=== PATIENT | female | born 1990 | race African-American/Black ===

== ENCOUNTER 2016-07-08 22:00 | Observation (INO) ==
[2016-07-08 22:39] LABS: Apearance,Urine Slightly Hazy (Clear); Bilirubin,Urine Negative (Negative); Blood, Urine Negative (Negative); Glucose,Urine (UA) Negative (Negative); Ketones,Urine 20 mg/dL (Negative); Mucus,Urine Few /LPF (Occasional); Nitrite,Urine Negative (Negative); Protein,Urine 30 MG/DL; RBC,Urine <1 /HPF (0-4); Squamous Epithelial Cell,Urine Occasional /HPF (0-10); Urine Color Yellow (Yellow); Urine Specific Gravity 1.018 (1.001-1.035); Urine Urobilinogen < 2.0 EU/DL (0.2-1.0); WBC,Urine 2 /HPF (0-6)
[2016-07-08] MEDS ORDERED: MEPERIDINE 50 MG/1 ML VIAL IV ONE (23:16)
[2016-07-08] MEDS ORDERED: PROMETHAZINE 25 MG/1 ML VIAL IM ONE (23:16)
[2016-07-08] MEDS: LACTATED RINGERS 1,000 ML IV SCH (23:54)
[2016-07-09] MEDS ORDERED: TERBUTALINE 1 MG/1 ML VIAL SUBCUT ONE (02:04)
[2016-07-09] MEDS: LACTATED RINGERS 1,000 ML IV SCH (02:45)
[2016-07-09 16:53] VITALS: BP 114/72
== END 2016-07-09 10:45 | disposition home or self-care (01) ==
LOC: N.LD 22:00 → N.LDOUT 22:00 → N.LD 22:04
PROVIDERS: ADMIT Specialist; ATTEND Specialist

== ENCOUNTER 2016-08-02 21:14 | Inpatient (IN) ==
[2016-08-02] MEDS ORDERED: BUTORPHANOL 2 MG/ML VIAL IV PRN (21:26)
[2016-08-02 22:09] LABS: Basophils % 0.4 % (0.0-0.8); Eosinophils # 0.1 10*3/uL (0.0-0.87); Hematocrit 30.4 VOL% (35.7-47.0); Hemoglobin 8.9 GM/DL (12.0-16.0); Immature Granulocytes % 0.3 %; Immature Granulocytes Absolute 0.03 #; Lymphocytes # 2.6 10*3/uL (1.4-4.0); Lymphocytes % 28.5 % (21.3-54.2); Mean Corpuscular HGB Conc 29.3 GM/DL (32-36); Mean Corpuscular Hemoglobin 21 PG (27-34); Mean Corpuscular Volume 69.9 FL (87-102); Monocytes # 0.6 10*3/uL (0.11-0.8); Monocytes % 6.7 % (1.7-12.7); NRBC # 0.03 10*3/uL; Neutrophils # 5.7 10*3/uL (1.4-7.4); Neutrophils % 63.1 % (38.7-73.9); Platelet Count 185 T/CUMM (130-400); Red Blood Count 4.35 MC/CUMM (3.8-5.5); Red Cell Distribution Width 16.9 % (9.3-17.3)
[2016-08-02 22:21] LABS: INR 0.9; PT Patient Result 9.4 SECS; Partial Thromboplastin Time 28.4 SECS (0-40)
[2016-08-02 22:29] LABS: Albumin 3.1 G/DL (3.4-5.0); Bilirubin,Total 0.4 MG/DL (0.2-1.0); Calcium 8.7 MG/DL (8.5-10.1); Potassium 3.7 MMOL/L (3.5-5.1); Total Protein 7.3 G/DL (6.4-8.3); Uric Acid 4.7 MG/DL (2.6-6.0)
[2016-08-02] MEDS: LACTATED RINGERS 1,000 ML IV SCH (23:45)
[2016-08-03] MEDS ORDERED: SODIUM CHLORIDE 0.9% 100 ML IV ONE (00:33)
[2016-08-03] MEDS ORDERED: AMPICILLIN 2,000 MG VIAL ONE (00:34)
[2016-08-03] MEDS: ONDANSETRON 4 MG/2 ML VIAL IV PRN ×2 (00:38→16:22)
[2016-08-03] MEDS: AMPICILLIN INJ 2,000 MG in SODIUM CHLORIDE 0.9% 100 ML IV SCH ×2 (00:42→11:35)
[2016-08-03] MEDS ORDERED: ePHEDrine 50 MG/ML AMP IV PRN (03:54)
[2016-08-03] MEDS ORDERED: fentaNYL 2 MCG/ROPIV 0.2% EPID 150 ML EPIDURAL SCH (03:54)
[2016-08-03] MEDS ORDERED: CITRIC ACID/SODIUM CITRATE 30 ML UDCUP PO ONE (03:54)
[2016-08-03] MEDS ORDERED: FAMOTIDINE 20 MG/2 ML VIAL IV ONE (03:54)
[2016-08-03] MEDS ORDERED: LACTATED RINGERS 1,000 ML IV SCH (04:00)
[2016-08-03] MEDS: LACTATED RINGERS 1,000 ML IV SCH ×2 (04:10→06:44)
[2016-08-03 06:05] LABS: Apearance,Urine CLEAR (Clear); Bilirubin,Urine Negative (Negative); Blood, Urine Moderate mg/dL (Negative); Glucose,Urine (UA) Negative (Negative); Ketones,Urine Negative (Negative); Nitrite,Urine Negative (Negative); Protein,Urine Negative; RBC,Urine 43 /HPF (0-4); Urine Color Yellow (Yellow); Urine Specific Gravity 1.008 (1.001-1.035); Urine Urobilinogen < 2.0 EU/DL (0.2-1.0); WBC,Urine <1 /HPF (0-6)
[2016-08-03] MEDS: OXYTOCIN/LR 20 UNIT/1,000 ML BAG IV SCH (06:12)
[2016-08-03] MEDS ORDERED: fentaNYL 100 MCG/2 ML VIAL ONE (07:41)
--- NOTE | 2016-08-03 08:06 | OB/GYN History & Physical ---
History of Present Illness Chief complaint: 40 weeks History of present illness: Ms. Sims is a 25 year old female 2 para 1 at 40 weeks estimated gestational age admitted for Cytotec induction. Ultrasound estimated weight 6 pounds medical clinical pelvimetry. Confirmation of vertex was made. Bag of bentley intact and ELADIO is normal. Patient had positive screening for Down syndrome earlier was referred to Dr. Jelani Ambrose perinatology in [place] with normal scan and was told her there was no evidence of genetic abnormality Patient was admitted and had Cytotec placed at midnight and 4 AM was rechecked noted to be 4-5 cm dilated and required no further Cytotec. She is admitted for expected vaginal delivery Home Medications Medication Instructions Recorded Confirmed Type Multivitamin () [ 1 tablet PO DAILY #30 12/22/14 08/02/16 Rx Vitamin] Levothyroxine Tab [Synthroid Tab] 1 tablet PO DAILY 08/02/16 08/02/16 History Allergies Allergy/AdvReac Type Severity Reaction Status Date / Time Nickel Allergy Intermediate RASH Verified 08/02/16 23:02 12 point system: reviewed and no additional remarkable complaints except as stated Medical,Surgical,& Family Hx - Medical History Psychological: No history of: Anxiety Disorders, ADHD, Behavior Problems, Bipolar Disorder, Depression, Previous Suicide Attempt, Psychiatric/Substance Abuse Tx, Schizophrenia, Violent Behavior, Psychiatric Problems Neurology: No history of: Brain Aneurysm, Cerebral Hemorrhage, Cerebrovascular Accident , Cerebral Palsy, Dementia HEENT: History of: Ear Problem (Keloids excised from right ear 5 times) No history of: Eye Problem, Dental Problems, Glaucoma, Oral Cancer, HEENT Problems Endocrine: History of: Thyroid Disorder (HYPERTHYROID) Rheumatology: No history of;: Psoriasis, Sjogrens, Systemic Lupus Erythematosus Respiratory: No history of: Respiratory Problems Renal: No history of: Renal Problems Gastrointestinal: History of: Hemorrhoids Musculoskeletal: No history of: Amputation, Musculoskeletal Problems Hematology: History of: Anemia (BLOOD TRANSFUSION IN 2009) No history of: Blood Transfusion Reaction Reproductive: History of: Abnormal Pap Smear (biopsy done in 2010) No history of: Breast Cancer, Endometriosis, Ectopic , Ovarian Cysts , Complication, Sexually Transmitted Disorders, Reproductive Cancer, Reproductive Problems Other: No history of: Anesthesia Reactions, Anaphylaxis, Cancer, Eczema, HIV, Malignant Hyperthermia, MRSA, Vancomycin-Resistant Enterococci, Skin Problems, Miscellaneous Medical Problems - Surgical History Cardiac Surgeries: Patient Denies: Cardiac Catheterization Thoracic Surgeries: Patient denies;: Organ Transplant, Lobectomy Neurologic Surgeries: Patient denies: Brain Aneurysm, Cerebral Hemorrhage, Neurologic Surgery HEENT Surgeries: Patient denies: Eye Surgery, Tonsilectomy & Adenoidectomy Abdominal Surgeries: Patient denies: Abdominal Surgery, Appendectomy, Cholecystectomy, Colonoscopy , Gastric Bypass Surgery, EGD, Hernia Repair Reproductive Surgeries: Patient denies;: Breast Surgery, Section, Dilation and Curettage, Genitourinary Surgery, Gynecologic Surgery, Hysterectomy, Tubal Ligation Orthopedic Surgeries: Patient denies;: Implanted Devices, Orthopedic Surgery, Spinal Surgery, Total Hip Replacement, Total Knee Replacement - Family History Family History: Reports;: Family Cancer (Maternal grandmother-lung ca), Family Diabetes (Dad and both grandmothers), Family Hypertension (Mom and maternal grandmother) Denies;: Family Anesthesia Reaction, Family Heart Disease, Family Hematology , Family Psychiatric Problems, Family Stroke, Additional Family History - Social History Smoking Status: Never smoker Frequency of Alcohol Use: None 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 - Constitutional Vitals: Vital Signs Temp Pulse Resp BP Pulse Ox 08/03/16 04:00 97.6 F 76 20 148/89 08/03/16 00:00 97.6 F 72 18 118/79 08/02/16 21:26 98.1 F 94 H 18 135/87 100 General appearance: normal weight - Head Head exam: Present: normal inspection, normocephalic, atraumatic - Neck Neck exam: Present: normal inspection - Respiratory Respiratory exam: Present: clear to auscultation bilaterally - Breast Breasts: as per HPI Menstruation: as per HPI - Cardiovascular Cardiovascular exam: Present: regular rate and rhythm - GI/Abdominal GI/Abdominal exam: Present: normal bowel sounds - Extremities Exam Extremities exam: Present: normal inspection, normal capillary refill Assessment and Plan (1) Postmaturity , 40-42 weeks gestation Status: Acute Current Visit: Yes Results - Labs CBC & BMP: 08/02/16 21:41 08/02/16 21:41
[2016-08-03] MEDS ORDERED: miSOPROStol 200 MCG TABLET ONE (08:40)
[2016-08-03] MEDS ORDERED: METHYLERGONOVINE 0.2 MG/1 ML AMP ONE (08:40)
--- NOTE | 2016-08-03 08:44 | OB/GYN Progress Note ---
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 Ackerman dictating vaginal delivery And in LDR environment under sterile conditions, the patient progressed to completely dilated. She was allowed to push and under [epidural] anesthesia had a normal spontaneous vaginal delivery of a live born female infant unweighed Apgars pending over a first-degree midline tear. The infant's nose and oropharynx were bulb and DeLee suctioned, and the infant had spontaneous cry after delivery. The cord was doubly clamped and cut and the was handed over to the pediatric team for care. Cord blood was obtained the placenta delivered spontaneously intact and IV Pitocin was done. There were no cervical tears. There were no periurethral tears. Estimated blood loss was 250 mL. The first-degree midline tear was repaired with 2-0 Monocryl suture in usual fashion under epidural anesthesia without complication there were no complications. The bladder was emptied using a catheter prior to delivery. All sponge needle and instrument counts were correct -3 at the end of the delivery. The infant was taken to nursery in stable condition Exam LASERIST - Constitutional Vitals: Vital Signs Temp Pulse Resp BP Pulse Ox 08/03/16 04:00 97.6 F 76 20 148/89 08/03/16 00:00 97.6 F 72 18 118/79 08/02/16 21:26 98.1 F 94 H 18 135/87 100 Results - Labs CBC & BMP: 08/02/16 21:41 08/02/16 21:41
[2016-08-03] MEDS ORDERED: LANOLIN 50% CREAM 0.3 OZ TUBE TOP PRN (08:45)
[2016-08-03] MEDS ORDERED: oxyCODONE/ACETAMINOPHEN 5-325 MG TABLET PO PRN ×2 (08:45)
[2016-08-03] MEDS ORDERED: MEASLES/MUMPS/RUBELLA VACCINE 0.5 ML VIAL SUBCUT ONE (08:45)
[2016-08-03] MEDS ORDERED: HYDROCORTISONE 2.5% RECTAL CREAM 30 GM TUBE TOP PRN (08:45)
[2016-08-03] MEDS ORDERED: DIPH/TET/ACEL PERT BOOSTER VACCINE 0.5 ML VIAL IM ONE (08:45)
[2016-08-03] MEDS ORDERED: ONDANSETRON 4 MG/2 ML VIAL IV PRN (08:45)
[2016-08-03] MEDS ORDERED: RHO(D) IMMUNE GLOBULIN 300 MCG SYRINGE IM ONE (08:45)
[2016-08-03] MEDS ORDERED: BISACODYL 10 MG SUPP RECTAL PRN (08:45)
[2016-08-03] MEDS ORDERED: OXYTOCIN/LR 20 UNIT/1,000 ML BAG IV ONE (08:45)
[2016-08-03] MEDS ORDERED: BENZOCAINE 20%/MENTHOL 0.5% SPRAY 56 GM CAN TOP PRN (08:45)
[2016-08-03] MEDS ORDERED: ACETAMINOPHEN 325 MG TABLET PO PRN (08:45)
[2016-08-03] MEDS ORDERED: WITCH HAZEL PADS 100/JAR TOP PRN (08:45)
[2016-08-03] MEDS: IBUPROFEN 800 MG TABLET PO PRN ×2 (11:00→20:09)
[2016-08-03] MEDS ORDERED: MULTIVITAMIN PO SCH (12:22)
[2016-08-03] MEDS ORDERED: LEVOTHYROXINE PO SCH (12:22)
[2016-08-03] MEDS: DOCUSATE SODIUM 100 MG CAPSULE PO SCH ×2 (16:15→21:17)
[2016-08-04] MEDS: LACTATED RINGERS 1,000 ML IV SCH (02:39)
[2016-08-04] MEDS: AMPICILLIN INJ 2,000 MG in SODIUM CHLORIDE 0.9% 100 ML IV SCH (02:39)
[2016-08-04] MEDS: IBUPROFEN 800 MG TABLET PO PRN (04:15)
[2016-08-04 05:48] LABS: Basophils % 0.3 % (0.0-0.8); Eosinophils # 0.2 10*3/uL (0.0-0.87); Eosinophils % 1.8 % (0.00-10.9); Hematocrit 24.5 VOL% (35.7-47.0); Immature Granulocytes % 0.5 %; Immature Granulocytes Absolute 0.05 #; Lymphocytes # 2.8 10*3/uL (1.4-4.0); Lymphocytes % 27.1 % (21.3-54.2); Mean Corpuscular HGB Conc 28.6 GM/DL (32-36); Mean Corpuscular Hemoglobin 20 PG (27-34); Mean Corpuscular Volume 70.6 FL (87-102); Monocytes # 0.8 10*3/uL (0.11-0.8); Monocytes % 7.5 % (1.7-12.7); NRBC # 0.03 10*3/uL; Neutrophils # 6.5 10*3/uL (1.4-7.4); Neutrophils % 62.8 % (38.7-73.9); Platelet Count 128 T/CUMM (130-400); Red Blood Count 3.47 MC/CUMM (3.8-5.5); Red Cell Distribution Width 17.1 % (9.3-17.3); White Blood Count 10.4 T/CUMM (4-12)
[2016-08-04] MEDS: OXYTOCIN/LR 20 UNIT/1,000 ML BAG IV SCH (06:03)
[2016-08-04 06:16] LABS: Hypochromasia 1+; Microcytosis 1+
[2016-08-04 06:17] LABS: Platelet Estimate Adequate
[2016-08-04] MEDS ORDERED: ACETAMINOPHEN/CODEINE 300-30 MG TABLET PO PRN (08:32)
--- NOTE | 2016-08-04 08:41 | OB/GYN Progress Note ---
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
[2016-08-04] MEDS: DOCUSATE SODIUM 100 MG CAPSULE PO SCH ×2 (08:45→21:06)
[2016-08-04] MEDS ORDERED: PROMETHAZINE 25 MG/1 ML VIAL IM ONE (08:45)
[2016-08-04] MEDS: ACETAMINOPHEN/CODEINE 300-30 MG TABLET PO PRN ×3 (08:45→21:05)
--- NOTE | 2016-08-04 17:11 | Anesthesia Post-Op ---
Anesthesia Post OP - Post Ansesthetic Evaluation Patient seen in post op: Yes Resp: within normal limits CV: within normal limits Mental: within normal limits Temp: within normal limits Dvhl-It-[id number]: within normal limits Nausea and Vomiting: within normal limits Pain: within normal limits
[2016-08-05] MEDS: ACETAMINOPHEN/CODEINE 300-30 MG TABLET PO PRN (00:40)
--- NOTE | 2016-08-05 05:44 | Discharge Summary ---
Hospital Course - Hospital Course Hospital Course: the patient did well. She had quick return of bowel and bladder function. She remained afebrile and normotensive throughout her hospitalization. She is constantly discharged on day #2 on a regular diet Diagnosis - Discharge Diagnosis (1) Postmaturity , 40-42 weeks gestation Status: Acute Specialty Discharge - Follow Up or Referrals Follow up with: Chriss Ackerman MD [Physician] - Discharge Plan - Discharge Data Disposition: Disch To Home/Self Care Condition at Discharge: Stable Discharge Diet: regular diet Activity: increase activity as tolerated, other (Pelvic rest) Hygiene: may shower Weight Bearing at Discharge: full weight bearing Driving: no restrictions Contact your physician if you experience:: fever over 101, Difficulty voiding, Redness or swelling, Nausea/Vomiting, Shortness of breath, Bleeding, pain uncontrolled by pain medications - Discharge Medications New HYDROcodone/ACETAMIN 5-325 [Corwith 5-325] 1 tablet PO Q4H PRN #15 tablet PRN Reason: Abdominal Pain Continue Multivitamin () [ Vitamin] 1 tablet PO DAILY #30 Levothyroxine Tab [Synthroid Tab] 1 tablet PO DAILY - Follow Up or Referral Follow Up: Chriss Ackerman MD [Physician] - 2 Weeks - Forms/Instructions Instructions: Perineal Care (DC), Vaginal Delivery (DC), Bleeding (DC) Exam - Constitutional Vitals: Period Temp Pulse Resp BP Sys/Teran Pulse Ox Last 24 Hr 96.8 F-98 F 70-96 18-20 109-140/66-90 97-100 Discharge Results Labs on day of discharge: Labs from last 24 hours 08/04/16 05:23 WBC 10.4 RBC 3.47 L D Hgb 7.0 L D Hct 24.5 L MCV 70.6 L MCH 20 L MCHC 28.6 L RDW 17.1 Plt Count 128 L D Neut % (Auto) 62.8 Lymph % (Auto) 27.1 Hudson % (Auto) 7.5 Eos % (Auto) 1.8 Baso % (Auto) 0.3 Neut # (Auto) 6.5 Lymph # (Auto) 2.8 [place] # (Auto) 0.8 Eos # (Auto) 0.2 Baso # (Auto) 0.0 Immature Gran % 0.5 Nucleated RBC % 0.3 Immature Gran # 0.05 Nucleated RBCs # 0.03 Platelet Estimate Adequate Hypochromasia 1+ Microcytosis 1+ Morphology Comment DS: Provider Date of admission: 08/02/16 21:26 Primary care physician: . No PCP Attending physician on admission: Lillian Harrison Consults: 08/02/16 21:26 Consult to Anesthesiology [CONS] Routine Consulting Provider: Reason for Anesthesiology: Epidural Consult Comment: Epidural for pain managment 08/03/16 08:45 Consult to Coal Carrier [CONS] Routine Consult Coal Carrier: Breast Feeding Discharging clinician: Lillian Harrison Expected date of discharge: 08/05/16
[2016-08-05 07:43] VITALS: BP 113/65
[2016-08-05] MEDS: DOCUSATE SODIUM 100 MG CAPSULE PO SCH (09:35)
== END 2016-08-05 10:50 | disposition home or self-care (01) | DRG 560 ==
LOC: N.LDOUT 21:14 → N.LD 21:19 → N.OB 08-03 12:21
PROVIDERS: ADMIT Specialist; ATTEND Specialist

== ENCOUNTER 2018-01-10 16:15 | Inpatient (IN) ==
[2018-01-10 18:00] LABS: Basophils % 0.4 % (0.0-0.8); Eosinophils % 0.4 % (0.00-10.9); Hematocrit 26.8 VOL% (35.7-47.0); Hemoglobin 7.2 GM/DL (12.0-16.0); Immature Granulocytes % 0.3 %; Immature Granulocytes Absolute 0.03 #; Lymphocytes # 2.1 10*3/uL (1.4-4.0); Lymphocytes % 21.4 % (21.3-54.2); Mean Corpuscular HGB Conc 26.9 GM/DL (32-36); Mean Corpuscular Hemoglobin 18 PG (27-34); Monocytes # 0.8 10*3/uL (0.11-0.8); Monocytes % 7.9 % (1.7-12.7); NRBC # 0.04 10*3/uL; Neutrophils # 6.8 10*3/uL (1.4-7.4); Neutrophils % 69.6 % (38.7-73.9); Platelet Count 184 T/CUMM (130-400); Red Blood Count 4.12 MC/CUMM (3.8-5.5); Red Cell Distribution Width 19.9 % (9.3-17.3); White Blood Count 9.8 T/CUMM (4-12)
[2018-01-10 18:16] LABS: Anisocytosis 1+; Hypochromasia 2+; Microcytosis 1+; Platelet Estimate Adequate; Polychromasia 1+
[2018-01-10] MEDS ORDERED: ACETAMINOPHEN 500 MG TABLET PO PRN (18:24)
[2018-01-11] MEDS: ONDANSETRON 4 MG/2 ML VIAL IV PRN ×2 (01:42→05:27)
[2018-01-11] MEDS: LACTATED RINGERS 1,000 ML IV SCH ×3 (01:45→07:03)
[2018-01-11] MEDS ORDERED: BUTORPHANOL 2 MG/ML VIAL IV PRN (01:46)
[2018-01-11] MEDS: diphenhydrAMINE 50 MG/1 ML VIAL IV PRN (02:09)
[2018-01-11] MEDS ORDERED: MEPERIDINE 50 MG/1 ML VIAL IV PRN (04:00)
[2018-01-11] MEDS ORDERED: NALOXONE 0.4 MG/ML VIAL IV PRN (06:34)
[2018-01-11] MEDS ORDERED: ePHEDrine 50 MG/ML AMP IV PRN (06:34)
[2018-01-11] MEDS ORDERED: diphenhydrAMINE 50 MG/1 ML VIAL IV PRN (06:34)
[2018-01-11] MEDS ORDERED: PROMETHAZINE 25 MG/1 ML VIAL IM PRN (06:34)
[2018-01-11] MEDS ORDERED: FAMOTIDINE 20 MG/2 ML VIAL IV PRN (06:36)
[2018-01-11] MEDS ORDERED: CITRIC ACID/SODIUM CITRATE 30 ML UDCUP PO PRN (06:36)
[2018-01-11] MEDS ORDERED: fentaNYL 2 MCG/ROPIV 0.2% EPID 100 ML EPIDURAL SCH (07:00)
[2018-01-11] MEDS ORDERED: OXYTOCIN/LR 20 UNIT/1,000 ML BAG IV ONE ×2 (07:27→07:45)
[2018-01-11] MEDS ORDERED: LIDOCAINE 1% 50 ML VIAL ONE (07:33)
[2018-01-11] MEDS ORDERED: HYDROCORTISONE 2.5% RECTAL CREAM 30 GM TUBE TOP PRN (07:45)
[2018-01-11] MEDS ORDERED: DIPH/TET/ACEL PERT BOOSTER VACCINE 0.5 ML VIAL IM ONE (07:45)
[2018-01-11] MEDS ORDERED: WITCH HAZEL PADS 100/JAR TOP PRN (07:45)
[2018-01-11] MEDS ORDERED: oxyCODONE/ACETAMINOPHEN 5-325 MG TABLET PO PRN ×2 (07:45)
[2018-01-11] MEDS ORDERED: RHO(D) IMMUNE GLOBULIN 300 MCG SYRINGE IM ONE (07:45)
[2018-01-11] MEDS ORDERED: BISACODYL 10 MG SUPP RECTAL PRN (07:45)
[2018-01-11] MEDS ORDERED: ONDANSETRON 4 MG/2 ML VIAL IV PRN (07:45)
[2018-01-11] MEDS ORDERED: ACETAMINOPHEN 325 MG TABLET PO PRN (07:45)
[2018-01-11] MEDS ORDERED: LANOLIN 50% CREAM 0.3 OZ TUBE TOP PRN (07:45)
[2018-01-11] MEDS ORDERED: BENZOCAINE 20%/MENTHOL 0.5% SPRAY 56 GM CAN TOP PRN (07:45)
[2018-01-11] MEDS ORDERED: IBUPROFEN 800 MG TABLET PO PRN (07:45)
[2018-01-11] MEDS ORDERED: MEASLES/MUMPS/RUBELLA VACCINE 0.5 ML VIAL SUBCUT ONE (07:45)
[2018-01-11] MEDS ORDERED: ONDANSETRON 4 MG/2 ML VIAL IV ONE (10:12)
[2018-01-11] MEDS: ONDANSETRON 4 MG TABLET PO PRN (14:02)
[2018-01-11] MEDS: ACETAMINOPHEN/CODEINE 120-12 MG/5 ML 12.5 ML UDCUP PO PRN (17:35)
[2018-01-11] MEDS: DOCUSATE SODIUM 100 MG CAPSULE PO SCH (20:20)
[2018-01-12] MEDS: ACETAMINOPHEN/CODEINE 120-12 MG/5 ML 12.5 ML UDCUP PO PRN ×4 (03:03→22:23)
[2018-01-12 06:42] LABS: Basophils % 0.3 % (0.0-0.8); Eosinophils # 0.1 10*3/uL (0.0-0.87); Eosinophils % 1.1 % (0.00-10.9); Immature Granulocytes % 0.3 %; Immature Granulocytes Absolute 0.03 #; Lymphocytes # 2.2 10*3/uL (1.4-4.0); Lymphocytes % 21.5 % (21.3-54.2); Mean Corpuscular HGB Conc 26.9 GM/DL (32-36); Mean Corpuscular Hemoglobin 17 PG (27-34); Mean Corpuscular Volume 64.9 FL (87-102); Monocytes # 0.8 10*3/uL (0.11-0.8); Monocytes % 8.3 % (1.7-12.7); NRBC # 0.03 10*3/uL; Neutrophils # 6.9 10*3/uL (1.4-7.4); Neutrophils % 68.5 % (38.7-73.9); Platelet Count 152 T/CUMM (130-400); Red Cell Distribution Width 19.5 % (9.3-17.3); White Blood Count 10.1 T/CUMM (4-12)
[2018-01-12 06:46] LABS: Hemoglobin 6.2 GM/DL (12.0-16.0)
[2018-01-12 06:47] LABS: Hematocrit 22.7 VOL% (35.7-47.0)
[2018-01-12 07:00] LABS: Hypochromasia 1+; Microcytosis 2+; Polychromasia Slight
[2018-01-12 07:01] LABS: Ovalocytes Few; Platelet Estimate Adequate
[2018-01-12] MEDS: DOCUSATE SODIUM 100 MG CAPSULE PO SCH ×2 (09:48→21:23)
[2018-01-12] MEDS: FERROUS SULFATE 300 MG/5 ML UDCUP PO SCH ×3 (09:49→21:23)
[2018-01-12] MEDS: ONDANSETRON 4 MG TABLET PO PRN (09:51)
[2018-01-12] MEDS: SODIUM CHLORIDE 0.9% 1,000 ML IV PRN ×2 (16:12→20:35)
[2018-01-12] MEDS: diphenhydrAMINE 50 MG/1 ML VIAL IV PRN (16:21)
[2018-01-12] MEDS ORDERED: INFLUENZA VIRUS VACCINE 0.5 ML SYRINGE IM ONE (16:44)
[2018-01-13 06:20] LABS: Basophils # 0.1 10*3/uL (0.0-0.2); Basophils % 0.6 % (0.0-0.8); Eosinophils # 0.2 10*3/uL (0.0-0.87); Eosinophils % 1.3 % (0.00-10.9); Hematocrit 32.2 VOL% (35.7-47.0); Immature Granulocytes % 0.3 %; Immature Granulocytes Absolute 0.04 #; Lymphocytes # 2.5 10*3/uL (1.4-4.0); Lymphocytes % 20.1 % (21.3-54.2); Mean Corpuscular HGB Conc 29.2 GM/DL (32-36); Mean Corpuscular Hemoglobin 20 PG (27-34); Mean Corpuscular Volume 69.1 FL (87-102); Monocytes # 0.8 10*3/uL (0.11-0.8); Monocytes % 6.1 % (1.7-12.7); NRBC # 0.05 10*3/uL; Neutrophils % 71.6 % (38.7-73.9); Red Cell Distribution Width 21.9 % (9.3-17.3); White Blood Count 12.6 T/CUMM (4-12)
[2018-01-13 06:21] LABS: Red Blood Count 4.66 MC/CUMM (3.8-5.5)
[2018-01-13 06:22] LABS: Hemoglobin 9.4 GM/DL (12.0-16.0); Platelet Count 183 T/CUMM (130-400)
[2018-01-13 06:28] LABS: Platelet Estimate Normal
[2018-01-13 06:29] LABS: Anisocytosis 1+; Microcytosis 3+
[2018-01-13 07:40] VITALS: BP 120/72
[2018-01-13] MEDS: DOCUSATE SODIUM 100 MG CAPSULE PO SCH (09:36)
[2018-01-13] MEDS: FERROUS SULFATE 300 MG/5 ML UDCUP PO SCH (09:36)
[2018-01-13] MEDS: ACETAMINOPHEN/CODEINE 120-12 MG/5 ML 12.5 ML UDCUP PO PRN (09:36)
[2018-01-13] MEDS ORDERED: DIPH/TET/ACEL PERT BOOSTER VACCINE 0.5 ML VIAL IM ONE (10:03)
== END 2018-01-13 14:10 | disposition home or self-care (01) | DRG 560 ==
LOC: N.LDOUT 16:15 → N.LD 16:16 → N.OB 01-11 10:42
PROVIDERS: ADMIT Specialist; ATTEND Specialist

== ENCOUNTER 2019-08-07 21:23 | Inpatient (IN) ==
[2019-08-07] MEDS ORDERED: MEPERIDINE 50 MG/1 ML VIAL IV PRN (21:35)
[2019-08-07] MEDS ORDERED: LACTATED RINGERS 1,000 ML IV SCH (22:00)
[2019-08-07 22:25] LABS: Albumin 2.7 G/DL (3.4-5.0); Bilirubin,Total 0.5 MG/DL (0.2-1.0); Calcium 9.4 MG/DL (8.5-10.1); Osmolality,Calculated 266.2 MOS/KG (273-304); Total Protein 7.6 G/DL (6.4-8.3)
[2019-08-07 22:36] LABS: Basophils % 0.5 % (0.0-0.8); Eosinophils # 0.1 10*3/uL (0.0-0.87); Hematocrit 28.3 VOL% (35.7-47.0); Hemoglobin 7.4 GM/DL (12.0-16.0); Immature Granulocytes % 0.6 %; Immature Granulocytes Absolute 0.05 #; Lymphocytes # 2.4 10*3/uL (1.4-4.0); Lymphocytes % 27.9 % (21.3-54.2); Mean Corpuscular HGB Conc 26.1 GM/DL (32-36); Mean Corpuscular Volume 66.1 FL (87-102); Monocytes % 8.6 % (1.7-12.7); NRBC # 0.12 10*3/uL; Neutrophils % 61.4 % (38.7-73.9); Platelet Count 212 T/CUMM (130-400); Red Blood Count 4.28 MC/CUMM (3.8-5.5); Red Cell Distribution Width 20.7 % (9.3-17.3); White Blood Count 8.7 T/CUMM (4-12)
[2019-08-08] MEDS ORDERED: ePHEDrine 50 MG/ML AMP IV PRN (07:07)
[2019-08-08] MEDS ORDERED: LACTATED RINGERS 1,000 ML IV ONE (07:07)
[2019-08-08] MEDS ORDERED: FAMOTIDINE 20 MG/2 ML VIAL IV ONE (07:07)
[2019-08-08] MEDS ORDERED: CITRIC ACID/SODIUM CITRATE 30 ML UDCUP PO ONE (07:07)
[2019-08-08] MEDS ORDERED: hydrOXYzine HCL 25 MG/1 ML VIAL IM PRN (07:08)
[2019-08-08] MEDS ORDERED: NALOXONE 0.4 MG/ML VIAL IV PRN (07:08)
[2019-08-08] MEDS ORDERED: diphenhydrAMINE 50 MG/1 ML VIAL IV PRN ×2 (07:08)
[2019-08-08] MEDS ORDERED: PROMETHAZINE 25 MG/1 ML VIAL IM ONE (07:08)
[2019-08-08] MEDS ORDERED: fentaNYL 2 MCG/ROPIV 0.2% EPID 100 ML EPIDURAL SCH (07:30)
[2019-08-08] MEDS ORDERED: LACTATED RINGERS 1,000 ML IV SCH (07:30)
[2019-08-08] MEDS ORDERED: OXYTOCIN/LR 20 UNIT/1,000 ML BAG IV SCH (08:00)
[2019-08-08] MEDS ORDERED: miSOPROStoL 200 MCG TABLET ONE (10:10)
[2019-08-08] MEDS ORDERED: METHYLERGONOVINE 0.2 MG/1 ML AMP ONE (10:11)
[2019-08-08] MEDS ORDERED: ONDANSETRON 4 MG/2 ML VIAL IV PRN (10:33)
[2019-08-08] MEDS ORDERED: OXYTOCIN/LR 20 UNIT/1,000 ML BAG IV ONE (10:33)
[2019-08-08] MEDS ORDERED: HYDROCORTISONE 2.5% RECTAL CREAM 30 GM TUBE TOP PRN (10:33)
[2019-08-08] MEDS ORDERED: WITCH HAZEL PADS 100/JAR TOP PRN (10:33)
[2019-08-08] MEDS ORDERED: ACETAMINOPHEN 325 MG TABLET PO PRN (10:33)
[2019-08-08] MEDS ORDERED: MEASLES/MUMPS/RUBELLA VACCINE 0.5 ML VIAL SUBCUT ONE (10:33)
[2019-08-08] MEDS ORDERED: DIPH/TET/ACEL PERT BOOSTER VACCINE 0.5 ML VIAL IM ONE (10:33)
[2019-08-08] MEDS ORDERED: BENZOCAINE 20%/MENTHOL 0.5% SPRAY 56 GM CAN TOP PRN (10:33)
[2019-08-08] MEDS ORDERED: BISACODYL 10 MG SUPP RECTAL PRN (10:33)
[2019-08-08] MEDS ORDERED: LANOLIN 50% CREAM 0.3 OZ TUBE TOP PRN (10:33)
[2019-08-08] MEDS ORDERED: oxyCODONE/ACETAMINOPHEN 5-325 MG TABLET PO PRN (10:33)
[2019-08-08] MEDS ORDERED: RHO(D) IMMUNE GLOBULIN 300 MCG SYRINGE IM ONE (10:33)
[2019-08-08 10:46] LABS: Apearance,Urine CLEAR (Clear); Bilirubin,Urine Negative (Negative); Blood, Urine Negative (Negative); Glucose,Urine (UA) Negative (Negative); Ketones,Urine Negative (Negative); Mucus,Urine Occasional /LPF (Occasional); Nitrite,Urine Negative (Negative); Protein,Urine Negative; RBC,Urine <1 /HPF (0-4); Squamous Epithelial Cell,Urine Occasional /HPF (0-10); Urine Color Yellow (Yellow); Urine Specific Gravity 1.017 (1.001-1.035); Urine Urobilinogen < 2.0 EU/DL (0.2-1.0); WBC,Urine 4 /HPF (0-6)
[2019-08-08] MEDS: oxyCODONE/ACETAMINOPHEN 5-325 MG TABLET PO PRN ×2 (15:11→22:14)
[2019-08-08] MEDS: ONDANSETRON 4 MG/2 ML VIAL IV PRN (17:34)
[2019-08-08 18:47] LABS: Hematocrit 23.7 VOL% (35.7-47.0)
[2019-08-08 18:49] LABS: Hemoglobin 6.3 GM/DL (12.0-16.0)
[2019-08-08] MEDS ORDERED: SODIUM CHLORIDE 0.9% 1,000 ML IV PRN (18:54)
[2019-08-08] MEDS: FERROUS SULFATE 325 MG TABLET PO SCH (21:53)
[2019-08-08] MEDS: DOCUSATE SODIUM 100 MG CAPSULE PO SCH (21:53)
[2019-08-08] MEDS: IBUPROFEN 800 MG TABLET PO PRN (22:01)
[2019-08-09] MEDS: oxyCODONE/ACETAMINOPHEN 5-325 MG TABLET PO PRN (04:00)
[2019-08-09 08:21] LABS: Basophils # 0.1 10*3/uL (0.0-0.2); Basophils % 0.5 % (0.0-0.8); Eosinophils # 0.1 10*3/uL (0.0-0.87); Eosinophils % 1.2 % (0.00-10.9); Hematocrit 27.9 VOL% (35.7-47.0); Immature Granulocytes % 0.4 %; Immature Granulocytes Absolute 0.04 #; Mean Corpuscular HGB Conc 28.7 GM/DL (32-36); Mean Corpuscular Volume 68.4 FL (87-102); NRBC # 0.07 10*3/uL; Neutrophils % 67.9 % (38.7-73.9); Platelet Count 127 T/CUMM (130-400); Red Blood Count 4.08 MC/CUMM (3.8-5.5); Red Cell Distribution Width 23.9 % (9.3-17.3); White Blood Count 9.3 T/CUMM (4-12)
[2019-08-09 08:31] LABS: Platelet Estimate Adequate; Poikilocytosis Slight
[2019-08-09 08:32] LABS: Anisocytosis 2+; Polychromasia Slight
[2019-08-09] MEDS: FERROUS SULFATE 325 MG TABLET PO SCH ×2 (09:10→17:44)
[2019-08-09] MEDS: DOCUSATE SODIUM 100 MG CAPSULE PO SCH ×2 (09:10→21:22)
[2019-08-09] MEDS ORDERED: ONDANSETRON 4 MG TABLET PO PRN (09:56)
[2019-08-09] MEDS: ONDANSETRON 4 MG/2 ML VIAL IV PRN (10:01)
[2019-08-09] MEDS: IBUPROFEN 800 MG TABLET PO PRN ×2 (12:46→20:31)
[2019-08-10] MEDS: FERROUS SULFATE 325 MG TABLET PO SCH ×2 (02:31→10:16)
[2019-08-10 07:26] VITALS: BP 150/93
[2019-08-10] MEDS: DOCUSATE SODIUM 100 MG CAPSULE PO SCH (10:16)
== END 2019-08-10 12:00 | disposition home or self-care (01) | DRG 560 ==
LOC: N.LDOUT 21:23 → N.LD 21:29 → N.OB 08-08 12:21
PROVIDERS: ADMIT Specialist; ATTEND Specialist

== ENCOUNTER 2020-09-12 06:03 | Inpatient (IN) ==
[2020-09-12] MEDS ORDERED: ONDANSETRON 4 MG/2 ML VIAL IV PRN ×2 (06:26→17:45)
[2020-09-12] MEDS ORDERED: LACTATED RINGERS 1,000 ML IV ONE ×2 (06:26→11:03)
[2020-09-12] MEDS ORDERED: LACTATED RINGERS 1,000 ML IV SCH (06:30)
[2020-09-12] MEDS ORDERED: MEPERIDINE 50 MG/1 ML VIAL IV PRN ×2 (06:36→18:28)
[2020-09-12] MEDS ORDERED: OXYTOCIN/LR 20 UNIT/1,000 ML BAG IV SCH (07:00)
[2020-09-12 07:21] LABS: Basophils # 0.1 10*3/uL (0.0-0.2); Basophils % 0.8 % (0.0-0.8); Eosinophils # 0.1 10*3/uL (0.0-0.87); Eosinophils % 1.1 % (0.00-10.9); Hematocrit 26.2 VOL% (35.7-47.0); Hemoglobin 7.6 GM/DL (12.0-16.0); Immature Granulocytes % 0.3 %; Immature Granulocytes Absolute 0.02 #; Lymphocytes # 1.7 10*3/uL (1.4-4.0); Lymphocytes % 23.7 % (21.3-54.2); Mean Corpuscular Volume 67.7 FL (87-102); Monocytes % 9.2 % (1.7-12.7); NRBC # 0.02 10*3/uL; Neutrophils % 64.9 % (38.7-73.9); Platelet Count 186 T/CUMM (130-400); Red Blood Count 3.87 MC/CUMM (3.8-5.5); Red Cell Distribution Width 18.1 % (9.3-17.3); White Blood Count 7.2 T/CUMM (4-12)
[2020-09-12 07:42] LABS: Albumin 2.7 G/DL (3.4-5.0); Bilirubin,Total 0.4 MG/DL (0.2-1.0); Calcium 8.9 MG/DL (8.5-10.1); Osmolality,Calculated 267.1 MOS/KG (273-304); Potassium 3.7 MMOL/L (3.5-5.1); Total Protein 7.1 G/DL (6.4-8.2)
[2020-09-12 07:43] LABS: Hypochromasia 1+; Microcytosis 1+; Platelet Estimate Adequate
[2020-09-12] MEDS ORDERED: CITRIC ACID/SODIUM CITRATE 30 ML UDCUP PO ONE (11:03)
[2020-09-12] MEDS ORDERED: FAMOTIDINE 20 MG/2 ML VIAL IV ONE (11:03)
[2020-09-12] MEDS ORDERED: hydrOXYzine HCL 25 MG/1 ML VIAL IM PRN (11:04)
[2020-09-12] MEDS ORDERED: PROMETHAZINE 25 MG/1 ML VIAL IM ONE (11:04)
[2020-09-12] MEDS ORDERED: NALOXONE 0.4 MG/ML VIAL IV PRN (11:04)
[2020-09-12] MEDS ORDERED: ePHEDrine 50 MG/ML VIAL IV PRN (11:04)
[2020-09-12] MEDS ORDERED: diphenhydrAMINE 50 MG/1 ML VIAL IV PRN ×2 (11:04)
[2020-09-12] MEDS ORDERED: fentaNYL 2 MCG/ROPIV 0.2% EPID 100 ML EPIDURAL SCH (11:30)
[2020-09-12] MEDS ORDERED: SODIUM CHLORIDE 0.9% 1,000 ML IV PRN (13:27)
[2020-09-12 14:24] LABS: Bilirubin,Urine Negative (Negative); Blood, Urine Negative (Negative); Glucose,Urine (UA) Negative (Negative); Ketones,Urine Negative (Negative); Nitrite,Urine Negative (Negative); Protein,Urine Negative; RBC,Urine <1 /HPF (0-4); Squamous Epithelial Cell,Urine Occasional /HPF (0-10); Urine Appearance CLEAR (Clear); Urine Color Straw (Yellow); Urine Specific Gravity 1.011 (1.001-1.035); Urine Urobilinogen < 2.0 EU/DL (0.2-1.0)
[2020-09-12] MEDS ORDERED: miSOPROStoL 200 MCG TABLET ONE (14:34)
[2020-09-12] MEDS ORDERED: OXYTOCIN/LR 20 UNIT/1,000 ML BAG IV ONE ×2 (14:34→17:45)
[2020-09-12] MEDS ORDERED: TRANEXAMIC ACID 1,000 MG/10 ML VIAL ONE (14:34)
[2020-09-12] MEDS ORDERED: CARBOPROST TROMETHAMINE 250 MCG/ML AMP IM ONE (14:35)
[2020-09-12] MEDS ORDERED: METHYLERGONOVINE 0.2 MG/1 ML AMP ONE (14:35)
[2020-09-12 15:20] LABS: Cord Arterial Blood HCO3 26.6 MMOL/L
[2020-09-12 15:23] LABS: Cord Venous Blood HCO3 25.4 MMOL/L; Cord Venous Blood PO2 23.4 MMHG
[2020-09-12] MEDS ORDERED: IBUPROFEN 100 MG/5 ML UDCUP PO PRN ×2 (16:33→18:42)
[2020-09-12] MEDS ORDERED: LANOLIN 50% CREAM 0.3 OZ TUBE TOP PRN (17:45)
[2020-09-12] MEDS ORDERED: BISACODYL 10 MG SUPP RECTAL PRN (17:45)
[2020-09-12] MEDS ORDERED: HYDROCORTISONE 2.5% RECTAL CREAM 30 GM TUBE TOP PRN (17:45)
[2020-09-12] MEDS ORDERED: WITCH HAZEL PADS 100/JAR TOP PRN ×2 (17:45→19:02)
[2020-09-12] MEDS ORDERED: BENZOCAINE 20%/MENTHOL 0.5% SPRAY 56 GM CAN TOP PRN ×2 (17:45→19:02)
[2020-09-12] MEDS ORDERED: ACETAMINOPHEN 325 MG TABLET PO PRN (17:45)
[2020-09-12] MEDS ORDERED: DIPH/TET/ACEL PERT BOOSTER VACCINE 0.5 ML VIAL IM ONE (17:45)
[2020-09-12] MEDS ORDERED: IBUPROFEN 800 MG TABLET PO PRN (17:45)
[2020-09-12] MEDS ORDERED: oxyCODONE/ACETAMINOPHEN 5-325 MG TABLET PO PRN ×2 (17:45)
[2020-09-12] MEDS ORDERED: RHO(D) IMMUNE GLOBULIN 300 MCG SYRINGE IM ONE (17:45)
[2020-09-12] MEDS ORDERED: MEASLES/MUMPS/RUBELLA VACCINE 0.5 ML VIAL SUBCUT ONE (17:45)
[2020-09-12] MEDS ORDERED: MEPERIDINE 50 MG/1 ML VIAL ONE ×2 (18:16→18:18)
[2020-09-12] MEDS ORDERED: MAGNESIUM HYDROXIDE SUSP 30 ML UDCUP PO PRN (18:42)
[2020-09-12] MEDS: ONDANSETRON 4 MG/2 ML VIAL IV PRN (20:00)
[2020-09-12] MEDS ORDERED: DOCUSATE SODIUM 100 MG CAPSULE PO SCH (21:00)
[2020-09-13] MEDS: ACETAMINOPHEN/CODEINE 120-12 MG/5 ML 12.5 ML UDCUP PO PRN ×3 (04:09→19:47)
[2020-09-13 06:05] LABS: Basophils # 0.1 10*3/uL (0.0-0.2); Basophils % 0.7 % (0.0-0.8); Eosinophils # 0.2 10*3/uL (0.0-0.87); Eosinophils % 1.9 % (0.00-10.9); Hematocrit 24.8 VOL% (35.7-47.0); Hemoglobin 7.2 GM/DL (12.0-16.0); Immature Granulocytes % 0.2 %; Immature Granulocytes Absolute 0.02 #; Lymphocytes # 2.1 10*3/uL (1.4-4.0); Lymphocytes % 24.6 % (21.3-54.2); Mean Corpuscular Volume 68.5 FL (87-102); Monocytes % 8.7 % (1.7-12.7); NRBC # 0.03 10*3/uL; Neutrophils % 63.9 % (38.7-73.9); Platelet Count 160 T/CUMM (130-400); Red Blood Count 3.62 MC/CUMM (3.8-5.5); White Blood Count 8.4 T/CUMM (4-12)
[2020-09-13 06:23] LABS: Hypochromasia 2+; Microcytosis 1+; Platelet Estimate Adequate
[2020-09-13] MEDS: FERROUS SULFATE 300 MG/5 ML UDCUP PO SCH ×4 (07:36→20:21)
[2020-09-13] MEDS ORDERED: FERROUS SULFATE 325 MG TABLET PO SCH (09:00)
[2020-09-13] MEDS ORDERED: oxyCODONE/ACETAMINOPHEN 5-325 MG TABLET PO PRN ×2 (12:08)
[2020-09-13] MEDS: ONDANSETRON 4 MG/2 ML VIAL IV PRN ×2 (13:20→18:15)
[2020-09-13] MEDS: POLYETHYLENE GLYCOL POWDER 17 GM PACK PO SCH (19:48)
[2020-09-14] MEDS: ACETAMINOPHEN/CODEINE 120-12 MG/5 ML 12.5 ML UDCUP PO PRN ×2 (02:14→08:12)
[2020-09-14] MEDS: FERROUS SULFATE 300 MG/5 ML UDCUP PO SCH (08:16)
[2020-09-14] MEDS: POLYETHYLENE GLYCOL POWDER 17 GM PACK PO SCH (08:16)
[2020-09-14 09:48] VITALS: BP 128/75
== END 2020-09-14 18:50 | disposition home or self-care (01) | DRG 560 ==
LOC: N.LD 06:03 → N.OB 18:01
PROVIDERS: ADMIT Specialist; ATTEND Specialist

== ENCOUNTER 2021-10-09 05:19 | Inpatient (IN) ==
[2021-10-09] MEDS ORDERED: ONDANSETRON 4 MG/2 ML VIAL IV PRN (05:28)
[2021-10-09] MEDS ORDERED: CARBOPROST TROMETHAMINE 250 MCG/ML AMP IM PRN (05:28)
[2021-10-09] MEDS ORDERED: LACTATED RINGERS 500 ML IV PRN (05:28)
[2021-10-09] MEDS ORDERED: TRANEXAMIC ACID 1,000 MG in SODIUM CHLORIDE 0.9% 100 ML IV PRN (05:28)
[2021-10-09] MEDS ORDERED: OXYTOCIN/LR 20 UNIT/1,000 ML BAG IV ONE (05:28)
[2021-10-09] MEDS ORDERED: METHYLERGONOVINE 0.2 MG/1 ML AMP IM PRN (05:28)
[2021-10-09] MEDS ORDERED: miSOPROStoL 200 MCG TABLET RECTAL PRN (05:28)
[2021-10-09] MEDS ORDERED: MEPERIDINE 50 MG/1 ML VIAL IV PRN (05:28)
[2021-10-09] MEDS ORDERED: LACTATED RINGERS 1,000 ML IV SCH (05:30)
[2021-10-09] MEDS ORDERED: OXYTOCIN/LR 20 UNIT/1,000 ML BAG IV SCH (05:30)
[2021-10-09] MEDS ORDERED: AMPICILLIN INJ 2,000 MG in SODIUM CHLORIDE 0.9% 100 ML IV ONE (05:42)
[2021-10-09 06:20] LABS: Albumin 2.5 G/DL (3.4-5.0); Bilirubin,Total 0.4 MG/DL (0.20-1.00); Calcium 8.8 MG/DL (8.5-10.1); Potassium 3.9 MMOL/L (3.5-5.1); Total Protein 7.3 G/DL (6.4-8.2)
[2021-10-09 06:35] LABS: Basophils # 0.1 10*3/uL (0.0-0.2); Basophils % 0.7 % (0.0-0.8); Eosinophils # 0.2 10*3/uL (0.0-0.87); Eosinophils % 2.3 % (0.00-10.9); Hematocrit 24.8 VOL% (35.7-47.0); Immature Granulocytes % 0.4 %; Immature Granulocytes Absolute 0.03 #; Lymphocytes # 2.1 10*3/uL (1.4-4.0); Lymphocytes % 29.6 % (21.3-54.2); Mean Corpuscular HGB Conc 25.8 GM/DL (32-36); Mean Corpuscular Volume 62.2 FL (87-102); Monocytes # 0.7 10*3/uL (0.11-0.8); Monocytes % 10.2 % (1.7-12.7); NRBC # 0.15 10*3/uL; Neutrophils % 56.8 % (38.7-73.9); Platelet Count 210 T/CUMM (130-400); Red Blood Count 3.99 MC/CUMM (3.8-5.5); Red Cell Distribution Width 22.9 % (9.3-17.3); White Blood Count 7.1 T/CUMM (4-12)
[2021-10-09 06:42] LABS: Hemoglobin 6.4 GM/DL (12.0-16.0)
[2021-10-09] MEDS ORDERED: SODIUM CHLORIDE 0.9% 1,000 ML IV PRN (06:44)
[2021-10-09 06:52] LABS: Platelet Estimate Normal
[2021-10-09 06:53] LABS: Anisocytosis 2+; Giant Platelets Few; Hypochromia Slight; Poikilocytosis Slight; Polychromasia Slight; Tear Drop Cells Few
[2021-10-09] MEDS ORDERED: FAMOTIDINE 20 MG/2 ML VIAL IV ONE (07:41)
[2021-10-09] MEDS ORDERED: hydrOXYzine HCL 25 MG/1 ML VIAL IM PRN (07:41)
[2021-10-09] MEDS ORDERED: CITRIC ACID/SODIUM CITRATE 30 ML UDCUP PO ONE (07:41)
[2021-10-09] MEDS ORDERED: ONDANSETRON 4 MG/2 ML VIAL IV ONE (07:41)
[2021-10-09] MEDS ORDERED: NALOXONE 0.4 MG/ML VIAL IV PRN (07:41)
[2021-10-09] MEDS ORDERED: PROMETHAZINE 25 MG/1 ML VIAL IM ONE (07:41)
[2021-10-09] MEDS ORDERED: diphenhydrAMINE 50 MG/1 ML VIAL IV PRN ×2 (07:41)
[2021-10-09] MEDS ORDERED: ePHEDrine 50 MG/ML VIAL IV PRN (07:41)
[2021-10-09] MEDS ORDERED: LACTATED RINGERS 1,000 ML IV ONE (07:41)
[2021-10-09] MEDS ORDERED: fentaNYL 2 MCG/ROPIV 0.2% EPID 100 ML EPIDURAL SCH (08:00)
[2021-10-09] MEDS: AMPICILLIN INJ 1,000 MG in SODIUM CHLORIDE 0.9% 100 ML IV SCH ×2 (09:39→18:33)
[2021-10-09] MEDS ORDERED: METHYLERGONOVINE 0.2 MG/1 ML AMP ONE (11:32)
[2021-10-09] MEDS ORDERED: miSOPROStoL 200 MCG TABLET ONE (11:32)
[2021-10-09] MEDS ORDERED: TRANEXAMIC ACID 1,000 MG/10 ML VIAL ONE (11:32)
[2021-10-09] MEDS ORDERED: CARBOPROST TROMETHAMINE 250 MCG/ML AMP IM ONE (11:33)
[2021-10-09] MEDS ORDERED: SODIUM CHLORIDE 0.9% 0 ML IV ONE (11:33)
[2021-10-09 11:58] LABS: Cord Arterial Blood HCO3 22.1 MMOL/L
[2021-10-09 12:00] LABS: Cord Venous Blood HCO3 23.7 MMOL/L; Cord Venous Blood PCO2 44.7 MMHG; Cord Venous Blood PO2 29.3
[2021-10-09] MEDS: LABETALOL 100 MG TABLET PO SCH ×2 (16:33→22:30)
[2021-10-09] MEDS: ACETAMINOPHEN/CODEINE 120-12 MG/5 ML 12.5 ML UDCUP PO PRN ×2 (16:34→21:08)
[2021-10-09] MEDS ORDERED: WITCH HAZEL PADS 100/JAR TOP PRN (16:40)
[2021-10-09] MEDS ORDERED: BENZOCAINE 20%/MENTHOL 0.5% SPRAY 56 GM CAN TOP PRN (16:44)
[2021-10-09 18:39] LABS: Hematocrit 27.8 VOL% (35.7-47.0); Hemoglobin 7.6 GM/DL (12.0-16.0)
[2021-10-09] MEDS: FERROUS SULFATE 325 MG TABLET PO SCH (20:54)
[2021-10-09] MEDS: DOCUSATE SODIUM 100 MG CAPSULE PO SCH (21:08)
[2021-10-10] MEDS: LABETALOL 100 MG TABLET PO SCH ×3 (05:35→22:19)
[2021-10-10 06:25] LABS: Basophils # 0.1 10*3/uL (0.0-0.2); Basophils % 0.6 % (0.0-0.8); Eosinophils # 0.2 10*3/uL (0.0-0.87); Eosinophils % 2.4 % (0.00-10.9); Hemoglobin 7.2 GM/DL (12.0-16.0); Immature Granulocytes % 0.6 %; Immature Granulocytes Absolute 0.06 #; Lymphocytes # 2.3 10*3/uL (1.4-4.0); Lymphocytes % 23.6 % (21.3-54.2); Mean Corpuscular HGB Conc 27.6 GM/DL (32-36); Mean Corpuscular Volume 65.7 FL (87-102); Monocytes # 0.8 10*3/uL (0.11-0.8); NRBC # 0.12 10*3/uL; Neutrophils % 64.8 % (38.7-73.9); Platelet Count 148 T/CUMM (130-400); Red Blood Count 3.97 MC/CUMM (3.8-5.5); Red Cell Distribution Width 24.3 % (9.3-17.3); White Blood Count 9.7 T/CUMM (4-12)
[2021-10-10 06:30] LABS: Hematocrit 26.1 VOL% (35.7-47.0)
[2021-10-10] MEDS: DOCUSATE SODIUM 100 MG CAPSULE PO SCH ×2 (09:18→21:09)
[2021-10-10] MEDS: FERROUS SULFATE 325 MG TABLET PO SCH ×3 (09:18→21:53)
[2021-10-10] MEDS: ACETAMINOPHEN/CODEINE 120-12 MG/5 ML 12.5 ML UDCUP PO PRN (18:30)
[2021-10-11] MEDS: ACETAMINOPHEN/CODEINE 120-12 MG/5 ML 12.5 ML UDCUP PO PRN (03:41)
[2021-10-11] MEDS: LABETALOL 100 MG TABLET PO SCH (06:33)
[2021-10-11 07:48] VITALS: BP 133/72
[2021-10-11] MEDS: FERROUS SULFATE 325 MG TABLET PO SCH (09:02)
[2021-10-11] MEDS: DOCUSATE SODIUM 100 MG CAPSULE PO SCH (09:03)
== END 2021-10-11 12:20 | disposition home or self-care (01) | DRG 560 ==
LOC: N.LD 05:19 → N.OB 15:43
PROVIDERS: ADMIT Specialist; ATTEND Specialist